=== PATIENT | male | born 2000 | race Caucasian/White ===

== ENCOUNTER 2025-07-13 15:47 | Emergency (ER) | payer MEDICAID, SELFPAY ==
--- OUTSIDE RECORDS SUMMARY | 2025-07-13 15:49 | XMS_ITS | Encounter Summary ---
Author Organization [facility] Address [address] [place] [address] Care Team Providers Care Hazard Mitigation Officer Name Role Phone Agustina Sepulveda MD Primary Care Provider + [phone] Reason for Visit * Reason Onset Date Comments Medication Issue 09/27/2024 Encounter Details Date Type Department Care Team (Late st Contact Info) Description 09/27/2024 Telephone [facility] - ENT [address] [place] [phone] Corby Queen MD [address] [place] [address] [place] [address] Medication Issue Social History Tobacco Use Types Packs/Day Years Used Date Smoking Tobacco: Never Smokeless Tobacco: Never Alcohol Use Standard Drinks/Week Comments No 0 (1 standard drink = 0.6 oz pur e alcohol) Sex and Gender Information Value Date Recorded Sex Assigned at Not on file Legal Sex Male 2:53 PM CDT Gender Identity Not on file Sexual Orientation Not on file documented as of this encounter Miscellaneous Notes * Telephone Encounter - Antoinette Love - 09/27/2024 12:43 PM CST Current Provider: Bernice Reason for Call: pts father called and said that pt was to receive ear drops but they were never sent to the pharmacy. The eye drops should be sent to the [facility] in [place] Patient Call Back Number: [phone] OR NET DEVELOPER ARCHITECT documented in this encounter Plan of Treatment Not on file documented as of this encounter Visit Diagnoses Not on filedocumented in this encounter Care Teams Hazard Mitigation Officer Relationship Specialty Start Date End Date Agustina Sepulveda MD [address] [place] [phone] PCP - General 03/18/19 documented as of this encounter
--- OUTSIDE RECORDS SUMMARY | 2025-07-13 15:49 | XMS_ITS | Clinical Summary ---
Author Organization [facility] Address [address] [facility] [place] [address] Care Team Providers Care Men'S Swim Coach Name Role Phone Agustina Sepulveda MD Primary Care Provider + [phone] [facility],non-owned Affiliates and Associated Physician Practices is amultiple site organization consisting of ambulatory clinics and hospital sitesin [place], [place], [place] and [place]. This disclosure is being madepursuant to the Care Everywhere program and may not contain all information available regarding this patient. Last updated 18.[facility] Conjur Allergies Active Allergy Reactions Criticality Noted Date Comments Food Angioedema High 07/07/2019 Allergic to apriocots Medications * Be aware that medications may not be up to date on this document. Alwaysverify current medications with the patient. ofloxacin (FLOXIN) 0.3 % otic solution Instill 4 drops into both ears 2 times daily 1 bottles 3 9 Active Additional Information Patient not taking.Reported on 09/20/2024 Active Problems Problem Noted Date Diagnosed Date Cholesteatoma, bilateral 05/09/2019 Conductive hearing loss, bilateral 04/18/2019 ETD (Eustachian tube dysfunction), bilateral Bilateral chronic otitis media 04/18/2019 Abnormal tympanic membrane of left ear 6 Overview (07/30/2019): Overview: History of perforation. Dad (5-6-19) says he needed ear tubes but we couldn't afford it. Exam shows a very abnormal ear drum that has been chronically painful and now leaking - try Augmentin pending ENT appointment in about ten days - ?cholesteatoma? 03-03-19 agrees and sent patient to Dr. Patric Queen at [facility]. 04-18-19 Dr. Queen says do CT of temporal bone then surgery(ies). Social History Tobacco Use Types Packs/Day Years Used Date Smoking Tobacco: Never Smokeless Tobacco: Never Alcohol Use Standard Drinks/Week Comments No 0 (1 standard drink = 0.6 oz pur e alcohol) Sex and Gender Information Value Date Recorded Sex Assigned at Not on file Legal Sex Male 2:53 PM CDT Gender Identity Not on file Sexual Orientation Not on file Last Filed Vital Signs Vital Sign Reading Time Taken Comments Blood Pressure 118/72 09/20/2024 8:23 AM DATA COLLECTION INTERVIEWER Pulse 53 09/20/2024 8:23 AM DATA COLLECTION INTERVIEWER Temperature 36.7 C (98.1 F) 07/07/2019 4:20 PM CDT Respiratory Rate 17 07/07/2019 6:15 PM CDT Oxygen Saturation 100% 07/07/2019 6:45 PM CDT Inhaled Oxygen Concentration - - Weight 60.8 kg (134 lb) 09/20/2024 8:23 AM DATA COLLECTION INTERVIEWER Height 177.8 cm (5' 10) 09/20/2024 8:23 AM DATA COLLECTION INTERVIEWER pt reported. Body Mass Index 19.23 09/20/2024 8:23 AM DATA COLLECTION INTERVIEWER Plan of Treatment Health Maintenance Due Date Last Done Comments HIV SCREENING 2016 HPV VACCINE (1 - Male 3-dose series) 2016 HEPATITIS C SCREENING 05/16/2019 DTAP/TDAP/TD VACCINES (1 - Tdap) 2020 HEPATITIS B VACCINE (1 of 3 - 19+ 3-dose series) 2020 DEPRESSION SCREENING 10/20/2024 COVID-19 VACCINE (1 - 2023-2 5 season) 2025 INFLUENZA VACCINE (#1) 2025 ZOSTER VACCINE (1 of 2) 2051 HIB VACCINE Aged Out No longer eligi ble based on patient's age to complete this topic MENINGOCOCCAL (Group B) VACC INE SHARED DECISION-MAKING Aged Out No longer eligibl e based on patient's age to complete this topic MENINGOCOCCAL GROUPS A/C/Y/W VACCINE Aged Out No longer eligible b ased on patient's age to complete this topic PNEUMOCOCCAL VACCINE Aged Out No long er eligible based on patient's age to complete this topic Insurance MEDICAID - OUT OF STATE Advance Directives * Full Code (Latest Code Status on File) Date Activated Date Inactivated Comments 07/07/2019 5:11 AM 07/07/2019 8:16 PM Care Teams Men'S Swim Coach Relationship Specialty Start Date End Date Agustina Sepulveda MD [address] [place] [phone] [facility] - General 03/18/19
--- OUTSIDE RECORDS SUMMARY | 2025-07-13 15:49 | XMS_ITS | Encounter Summary ---
Author Organization [facility] Address [address] [place] [address] Care Team Providers Care Information Management Manager Name Role Phone Agustina Sepulveda MD Primary Care Provider + [phone] Reason for Visit * Reason Onset Date Comments Appointment 09/09/2024 Encounter Details Date Type Department Care Team (Late st Contact Info) Description 09/09/2024 Telephone [facility] - ENT [address] [place] [phone] Corby Queen MD [address] [place] [address] DEPT OF OTOLARYNGOLOGY [place], [place] [id number] Appointment Social History Tobacco Use Types Packs/Day Years [...] * Telephone Encounter - Antoinette Love - 09/09/2024 8:27 AM CST Current Provider: Bernice Reason for Call: pt has upcomig appt 09/20 but has leakage from his ear and it is now ringing reallybad. Pt is wanting to be seen sooner if possible with a appt later in the day. Patient Call Back Number: [phone] ALS SPECIALIST documented in this encounter Plan of Treatment Not on file documented as of this encounter Visit Diagnoses Not on filedocumented in this encounter Care Teams Information Management Manager Relationship Specialty Start Date End Date Agustina Sepulveda MD [address] [place] [phone] PCP - General 03/18/19 documented as of this encounter
--- OUTSIDE RECORDS SUMMARY | 2025-07-13 15:49 | XMS_ITS | Clinical Summary ---
Author Organization [facility] [address] Address [address] [place] [address] Phone Care Team Providers Care Payroll Administrator Name Role Phone Agustina Sepulveda MD Primary Care Provider + [phone] Allergies No known active allergies Medications acetaminophen (TYLENOL) 325 mg tablet Take 2 tablets (650 mg total) by mouth every 6 (six) hours as needed for pain 30 tablet 0 Active Additional Information Patient not taking.Reported on 09/11/2024 naproxen sodium (ALEVE ORAL) Take by mouth Act sony ketorolac (TORADOL) 10 mg tablet Take 1 tablet (10 mg total) by mouth every 6 (six) hours as needed for pain 20 tablet 5 Active HYDROcodone-brice taminophen (NORCO) 5-325 mg per tabletIndicatio ns:Pain Take 1 tablet by mouth every 6 (six) hours as needed for pain 12 tablet 5 Active Active Problems Problem Noted Date Diagnosed Date Health care maintenance 06/04/2016 Overview (02/22/2019): Cholesteatoma 06/04/2016 Overview (09/21/2024): 05-10-19 BOTH EARS , PENDING SURGERY. History of perforation. Dad (02-22-19) says he needed ear tubes but we couldn't afford it. Exam shows a very abnormal ear drum that has been chronically painful and now leaking - try Augmentin pending ENT appointment in about ten days - ?cholesteatoma? 03-03-19 agrees and sent patient to Dr[facility] Patric Queen at [facility]. 04-18-19 Dr. Queen says do CT of temporal bone then surgery(ies). 11-19-19 audio 20 dB R and 35 dB L and second stage of L surgery planned. 12-20-19 SURYA SAYS THERE IS ANOTHER SURGERY PLANNED ON LEFT EAR AND THEN SURGERY ON RIGHT EAR . . . COVID pandemic . . . 09-20-24 f/u to Dr. Queen; ordered audiogram, CT, and do the planned surgery(ies). Encounters Date Type Department Care Team Description 06/10/2025 6:57 PM CDT - 06/10/2025 9:18 PM CDT Emergency [facility] Emergency Department [address] [place] [id number] Acute right ankle pain (Primary Dx) Discharge Disposition: Discharge to home or self care from Last 3 Months Immunizations Immunization Administration Dates Next Due DTaP 06/05/2006, 4,02/17/2002,2001,1 Hep A, Pediatric 06/03/2013 Hep B, Adolescent or Pediatric 02/17/2002,2000,2001 HiB 12/08/2003,02/17/2002,2001 ,2001 IPV 06/05/2006,12/08/2003,2001 ,2001 MMR 06/05/2006,08/03/2002 Meningococcal MCV4P (Menactra) 06/03/2013 Tdap 06/03/2013 Varicella 06/03/2013,08/03/2002 Surgical History Surgery Date Site/Laterality Comments TYMPANOPLASTY W/ MASTOIDECTOMY 07/07/2019 LEFT . . . needs repeat audio [facility] Oct 2019 then another procedure Jan 2020!! Medical History Medical History Date Comments [place] 2001 6-8 weight approximately Family History Medical History Relation Name Comments COPD Father Diabetes Other 1 Aneurysm Other 2 Sudden ag e 51 Hypertension Other 3 Relation Name Status Comments Father Other 1 Other 2 Other 3 Social History Tobacco Use Types Packs/Day Years Used Date Smoking Tobacco: Never Smokeless Tobacco: Never Comments:Daily vaping Alcohol Use Standard Drinks/Week Comments Not Currently 0 (1 standard drink = 0.6 oz pur e alcohol) Personal Safety Answer Date Recorded Have you ever been in or are you currently in a harmful physical or emotional relationship or is someone making you feel afraid or unsafe? Denies 06/10/2025 Sex and Gender Information Value Date Recorded Sex Assigned at Not on file Legal Sex Male 8:11 AM DRONE OPERATOR Gender Identity Not on file Sexual Orientation Not on file Obstetrics History Last Filed Vital Signs Vital Sign Reading Time Taken Comments Blood Pressure 123/63 06/10/2025 9:16 PM CDT Pulse 57 06/10/2025 9:16 PM CDT Temperature 37.3 C (99.2 F) 06/10/2025 6:46 PM CDT Respiratory Rate 16 06/10/2025 9:16 PM CDT Oxygen Saturation 94% 06/10/2025 9:16 PM CDT Inhaled Oxygen Concentration - - Weight 61.2 kg (135 lb) 06/10/2025 6:46 PM CDT Height 177.8 cm (5' 10) 06/10/2025 6:46 PM CDT Body Mass Index 19.37 06/10/2025 6:46 PM CDT Plan of Treatment Health Maintenance Due Date Last Done Comments Depression Screening 2001 Hepatitis C Screening 2001 Regular Well Visit/Exam 18-64 2019 HPV Vaccines (2 - Male 3-dose series) 06/02/2019 05/05/2019 DTaP/Tdap/Td Vaccine (7 - Td or Tdap) 06/03/2023 06/03/2013, 06/05/2006, 12/08/2003, Additional history exists Influenza Vaccine (#1) 2025 Hepatitis B Screening Completed 02/17/2002 , 2001, 2001 Varicella Vaccines Completed 06/03/2013, 08/03/2002 Pneumococcal vaccine <65 Aged Out No longer eligible based on patient's age to complete this topic Procedures Procedure Name Priority Date/Time Associated Diagnosis Comments XR ANKLE LEFT 2 VIEWS ED 06/10/2025 7:03 PM CDT from Last 3 Months Results * XR Ankle Left 2 Views (06/10/2025 7:03 PM CDT) Anatomical Region Laterality Modality Lower Extremities, Ankle Left Compute d Radiography 06/10/2025 7:31 PM CDT Narrative 06/10/2025 7:33 PM CDT EXAM DESCRIPTION: XR ANKLE LEFT 2 VIEWS REASON FOR STUDY: pain Pt states he was weed whacking Today, and hit his left ankle swelling with abrasion. TECHNIQUE: 2 radiographic view(s) of the left ankle . COMPARISON: None available FINDINGS: The alignment is normal on this nonweightbearing examination. There is no acute fracture. Joint spaces are normal. No focal bone lesions. No ankle effusion. There is focal anterior ankle soft tissue swelling. No radiodense foreign bodies. IMPRESSION: No acute osseous abnormality. THIS IS AN ELECTRONICALLY VERIFIED FINAL REPORT 06/10/2025 7:33 PM - Electronically signed by Noelle Oates M.D. AT: AT Report ID: [id number] Reading Location: [id number] Procedure Note Noelle Oates MD - 06/10/2025 EXAM DESCRIPTION: XR ANKLE LEFT 2 VIEWS REASON FOR STUDY: pain Pt states he was weed whacking Today, and hit his left ankle swelling with abrasion. TECHNIQUE: 2 radiographic view(s) of the left ankle . COMPARISON: None available FINDINGS: The alignment is normal on this nonweightbearing examination. There is no acute fracture. Joint spaces are normal. No focal bone lesions. Noankle effusion. There is focal anterior ankle soft tissue swelling. Noradiodense foreign bodies. IMPRESSION: No acute osseous abnormality. THIS IS AN ELECTRONICALLY VERIFIED FINAL REPORT 06/10/2025 7:33 PM - Electronically signed by Noelle Oates M.D. AT: AT Report ID: [id number] Reading Location: [id number] Anton Amezquita MD IMG XR PROCEDURES Final Resu lt from Last 3 Months Insurance [facility] IDPA Care Teams Payroll Administrator Relationship Specialty Start Date End Date Agustina Sepulveda MD [address] [address] PCP - General Pediatrics 01/18/22
--- OUTSIDE RECORDS SUMMARY | 2025-07-13 15:49 | XMS_ITS | Clinical Summary ---
Author Organization [facility] Address [address], [facility] [address] [place] [address] Phone Care Team Providers Care Fiber Machine Tender Name Role Phone Provider, None Primary Care Provider Unavailabl e Allergies No known active allergies Medications amoxicillin-cla vulanate (AUGMENTIN) 600-42.9 MG/5ML Recon Suspension TK 7.5 ML PO BID FOR 10 DAYS 0 02/22/2019 Active neomycin-polymy mandi-hydrocortis one (CORTISPORIN) 3.5-76206-7 Suspension INSTILL 3 DROPS IN LEFT EAR TWICE DAILY FOR 10 DOSES 10 mL 07/05/2019 Active Social History Tobacco Use Types Packs/Day Years Used Date Smoking Tobacco: Never Smokeless Tobacco: Never Alcohol Use Standard Drinks/Week Comments Never 0 (1 standard drink = 0.6 oz pur e alcohol) AUDIT-C Answer Date Recorded Frequency of Alcohol Consumption Never 03/03/2019 Average Number of Drinks Not on file 019 Frequency of Binge Drinking Not on file 02/17 Sex and Gender Information Value Date Recorded Sex Assigned at Not on file Legal Sex Male 11:37 PM CDT Gender Identity Not on file Sexual Orientation Not on file Last Filed Vital Signs Vital Sign Reading Time Taken Comments Blood Pressure 132/74 09/11/2024 1:57 PM ORE FIELDER Pulse 60 09/11/2024 1:57 PM ORE FIELDER Temperature 36.4 C (97.6 F) 09/11/2024 1:10 PM ORE FIELDER Respiratory Rate 16 09/11/2024 1:57 PM ORE FIELDER Oxygen Saturation 99% 09/11/2024 1:57 PM ORE FIELDER Inhaled Oxygen Concentration - - Weight 59 kg (130 lb) 09/11/2024 1:10 PM ORE FIELDER Height 177.8 cm (5' 10) 09/11/2024 1:10 PM ORE FIELDER Body Mass Index 18.65 09/11/2024 1:10 PM ORE FIELDER Plan of Treatment Health Maintenance Due Date Last Done Comments Hepatitis C Virus (HCV) Screening 2001 Human Papillomavirus (HPV) Immunization (1 - Male 3-dose series) 2016 Influenza Immunization (#1) 2025 SARS-COV-2 Immunization (3 - season) 2025 08/07/2021, 06/01/2021 Respiratory Syncytial Virus (RSV) Immunization (Adult) (1 - 1-dose 75+ series) 2076 Hepatitis B Immunization Completed 002, 2001, 2001 Measles Mumps Rubella (MMR) Immunization Discontinued 06/05/2006, 08/03/2002 Polio (IPV) Immunization Discontinued 006, 12/08/2003, 2001, Additional history exists DTaP/Tdap/Td Immunization Discontinued 2012, 06/05/2006, 12/08/2003, Additional history exists Hepatitis A Immunization Discontinued 06/03/2013 Meningococcal Immunization (ACWY) Aged Out 06/03/2013 No longer eligible based on patient's age to complete this topic TdaP Immunization Completed 06/03/2013 Varicella Immunization Discontinued 06/03/2013, 2001 Pneumococcal Immunization Combined Aged Out No longer eligible based on patient's age to complete this topic Rotavirus Immunization Aged Out No lo nger eligible based on patient's age to complete this topic Care Teams Fiber Machine Tender Relationship Specialty Start Date End Date Provider, None [place] PCP - General 09/11/24
--- OUTSIDE RECORDS SUMMARY | 2025-07-13 15:49 | XMS_ITS | Encounter Summary ---
Author Organization [facility] Address [address] [place] [address] Care Team Providers Care Composer Teaching Artist Name Role Phone Agustina Sepulveda MD Primary Care Provider + [phone] Reason for Visit * Reason Onset Date Comments Appointment 11/24/2024 Encounter Details Date Type Department Care Team (Late st Contact Info) Description 11/24/2024 Telephone [facility] - Centralized Scheduling [address] [place] [phone] Corby Queen MD [address] [place] [address] Appointment Social History Tobacco Use Types Packs/Day [...] encounter Miscellaneous Notes * Telephone Encounter - Iesha Nick - 11/24/2024 10:24 AM CST Patient's father is calling to schedule CT and then an appt with Dr Queen. H COORDINATOR documented in this encounter Plan of Treatment Not on file documented as of this encounter Visit Diagnoses Not on filedocumented in this encounter Care Teams Composer Teaching Artist Relationship Specialty Start Date End Date Agustina Sepulveda MD [address] [place] [phone] PCP - General 03/18/19 documented as of this encounter
--- NOTE | 2025-07-13 16:00 | ED_ITS ---
HPI - Ear Problem General Chief complaint: Ear Stated complaint: Ear Pain Time Seen by Provider: 07/13/25 16:00 Source: patient Mode of arrival: ambulatory Limitations: no limitations History of Present Illness HPI Narrative: 25-year-old male presents with complaint of right ear pain for 1 day. Afebrile. Patient reports history of recurrent ear infection. no other complaints today. All systems reviewed and negative except as noted above. Related Data Allergies Allergy/AdvReac Type Severity Reaction Status Date / Time No Known Allergies Allergy Verified 07/13/25 16:00 PMFSH Comments At time of signature, agree with nursing past medical, surgical, social and family history. There is no relevant family history pertinent to the presenting complaint. Exam Narrative: GENERAL: This is a well-nourished, well-developed patient, in no apparent distress. HEAD: normocephalic, atraumatic. EYES: PERRL. Sclera clear/white. Vision is grossly intact. EARS: External ears normal, auditory canals clear and without drainage, Fluid to right TM with mild erythema. Dull light reflex. Left TM is normal. No perforation bilaterally. Hearing grossly intact. NOSE: External nose normal with no obvious nasal discharge, nares without redness, no rhinorrhea. THROAT: Mucous membranes moist, posterior pharynx clear. NECK: Neck supple, non-tender without lymphadenopathy, masses or thyromegaly. CARDIOVASCULAR: Regular rate and rhythm without murmurs, gallops, or rubs. RESPIRATORY: Clear to auscultation. Breath sounds equal bilaterally. No wheezes, rales, or rhonchi. SKIN: warm, Dry, intact with no suspicious lesions or rash, good texture and turgor. NEURO: awake, alert, and oriented to person, place and time. There were no obvious focal neurologic abnormalities. EXTREMITIES: No joint tenderness, effusion, or edema noted. Course Course Level of Care: Express Care Visit Vital Signs Vital signs: Reviewed Medical Decision Making MDM Narrative Medical decision making narrative: will treat right serous otitis media with amoxicillin. Patient agrees with plan of care. Discharge Plan Discharge Clinical Impression: Acute serous otitis media, right ear Patient Disposition: Home Condition: Stable Instructions: Antibiotic Form, Fluid In The Ear (Serous Otitis Media) (ED) Additional Instructions: Take antibiotic as prescribed until gone. Take ibuprofen or Tylenol every 6 hours as needed for pain. Follow-up with your doctor if not improving. Patient Language: Luxembourger Prescriptions: New amoxicillin 875 mg tablet 875 mg PO Q12H 10 Days Qty: 20 0RF fluticasone propionate [Flonase Allergy Relief] 50 mcg/actuation spray,suspension 1 spray intranasal BID Qty: 16 0RF Rx Instructions: administer into each nostril Follow-up/Referrals: UNKNOWN,DOCTOR [Primary Care Provider] Time of Disposition: 16:03
[2025-07-13 16:01] VITALS: BP 121/67; PULSE 76; RESP 16; TEMP 36.8; O2SAT 100
== END 2025-07-13 16:09 | disposition home or self-care (01) ==
PROVIDERS: Emergency Provider Nurse Practitioner Family
DX: H65.01 Acute serous otitis media, right ear (principal)
CPT/HCPCS: 99203; G0463